=== PATIENT | male | born 1960 | race Asian ===

== ENCOUNTER 2022-07-01 15:15 | Outpatient (REF) | payer OTHER, SELFPAY ==
[2022-07-01 16:15] LABS: Thyroid Stimulating Hormone 1.17 uIU/mL (0.32-4.0)
[2022-07-01 16:34] LABS: Folate 16.7 ng/mL (> or = 4.0); Vitamin B12 514 pg/mL (200-900)
[2022-07-01 16:49] LABS: T4 Thyroxine 5.5 ug/dL (4.5-12.0)
[2022-07-03 17:37] LABS: Homocysteine 6.1 umol/L (<11.4)
== END 2022-07-01 15:16 | disposition home or self-care (01) ==
LOC: HO.LAB 15:15
PROVIDERS: PCP Internal Medicine; Visit Provider Psychiatry & Neurology Neurology
DX: G31.84 Mild cognitive impairment of uncertain or unknown etiology (principal)
CPT/HCPCS: 36415; 82607; 82746; 83090; 84436; 84443

== ENCOUNTER 2022-07-15 08:32 | Outpatient (REF) | payer OTHER, SELFPAY ==
--- NOTE | ~2022-07-15 | CT_ITS ---
EXAMINATION: CT HEAD WITHOUT CONTRAST CLINICAL INFORMATION: [facility] COMPARISON: None TECHNIQUE: Contiguous axial imaging was performed from the skull base to vertex without intravenous administration of contrast. This CT examination was performed using dose optimization techniques as appropriate, variously including the following: *Automated exposure control *Adjustment of mA and/or kV according to patient size (this includes techniques or standardized protocols for targeted exams where dose is matched to indication/reason for exam; i.e. extremities or head) *Use of iterative reconstruction technique DLP: 813 mGy-cm FINDINGS: There is no acute intra-axial, extra-axial bleed, masses or midline shift. There is no acute infarction evolution. There is a hypodensity in the left frontal lobe suggestive of old infarct or injury. Both lateral ventricles are symmetrical in size and configuration without the ventriculomegaly. Harmon to white matter differentiation maintained normal. Bone windows reveal no calvarial abnormality. There is no scalp soft tissue abnormality. Bilateral paranasal sinuses and mastoid air cells are well-aerated. CT/CT head/brain wo IV con IMPRESSION: 1. No acute intracranial process seen. 2. 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
== END 2022-07-15 08:33 | disposition home or self-care (01) ==
LOC: HO.CT 08:32
PROVIDERS: Visit Provider Psychiatry & Neurology Neurology
DX: G31.84 Mild cognitive impairment of uncertain or unknown etiology (principal)
CPT/HCPCS: 70450